=== PATIENT | female | born 1955 | race Two or more races ===

== ENCOUNTER 2021-09-03 19:22 | Emergency (ER) | payer OTHER ==
[~2021-09-03] VITALS: Ht 175.3 cm; Wt 74.8 kg
[~2021-09-03 19:22] MED LIST: BETAMETHASONE D15 GM; CIPRO HC OTIC S10 ML OT; MOTRIN800 MG PO; ZITHROMAX TRI-500 MG PO
== END 2021-09-03 21:05 | disposition home or self-care (01) ==
LOC: ER 19:22
DX: T16.1XXA Foreign body in right ear, initial encounter (principal); X58.XXXA Exposure to other specified factors, initial encounter; Y93.E8 Activity, other personal hygiene; Y92.018 Other place in single-family (private) house as the place of occurrence of the external cause; Y99.8 Other external cause status

== ENCOUNTER 2022-10-07 16:18 | Emergency (ER) | payer OTHER ==
[~2022-10-07] VITALS: Ht 167.6 cm; Wt 74.8 kg
[2022-10-07] MEDS ORDERED: [UNRECOGNIZED DRUG - OTHER] OT (20:08)
== END 2022-10-07 20:39 | disposition home or self-care (01) ==
LOC: ER 16:18
DX: H60.92 Unspecified otitis externa, left ear (principal)